=== PATIENT | male | born 1960 | race African-American/Black ===

== ENCOUNTER 2018-02-22 13:51 | Inpatient (IN) | payer MEDICAID ==
[~2018-02-22] VITALS: Ht 182.9 cm; Wt 83.9 kg
[2018-02-22] MEDS ORDERED: ONDANSETRON HCL 4MG/2ML INJ IV STA ×2 (13:59→14:52)
[2018-02-22] MEDS ORDERED: OCTREOTIDE ACETATE 50 MCG/ML 1ML IV STA (13:59)
[2018-02-22] MEDS ORDERED: PANTOPRAZOLE SODIUM 40 MG/VIAL IV STA (13:59)
[2018-02-22] MEDS ORDERED: SODIUM CHLORIDE 0.9% 1000ML BAG (SEPSIS BOLUS) IV ONE (14:00)
[2018-02-22] MEDS ORDERED: NOREPINEPHRINE 4 MG in DEXT 5% WATER 246 ML IV ONE ×2 (14:45→19:30)
[2018-02-22 14:53] LABS: BASOPHILS % 0.6 % (0.0-2.0); EOSINOPHILS % 0.4 % (0.0-5.0); LYMPHOCYTES % 30.7 % (20.0-50.0); MEAN CORPUSCULAR HEMOGLOBIN 41.6 pg (28.0-32.0); MEAN CORPUSCULAR VOLUME 119.6 fL (80.0-94.0); MEAN PLATELET VOLUME 8.9 fl (7.4-10.4); MONOCYTES % 13.9 % (2.0-8.0); NEUTROPHILS % 54.4 % (40.0-76.0); PLATELET 53 x1000/uL (130-400); RED BLOOD CELL COUNT 1.27 mill/uL (4.7-6.1); RED CELL DISTRIBUTION WIDTH 18.9 % (11.6-14.6)
[2018-02-22 14:59] LABS: CHLORIDE 112 mEq/L (98-107)
[2018-02-22 15:02] LABS: HEMATOCRIT. 15.2 % (42.0-52.0); HEMOGLOBIN. 5.3 g/dL (14.0-18.0); INR 2.4; PROTHROMBIN TIME 23.5 sec (9.1-11.1)
[2018-02-22] MEDS ORDERED: SUCCINYLCHOLINE CHLORIDE 200MG/10ML IV ONE ×2 (15:08→15:15)
[2018-02-22] MEDS ORDERED: ETOMIDATE 2MG/ML 10ML VIAL IV ONE ×2 (15:08→15:15)
[2018-02-22] MEDS ORDERED: MIDAZOLAM HCL 50 MG in DEXTROSE 5% WATER 40 ML IV ONE (15:15)
[2018-02-22] MEDS ORDERED: NOREPINEPHRINE 4MG/250ML PMX 250 ML IV ONE ×2 (15:15→16:45)
[2018-02-22] MEDS ORDERED: MIDAZOLAM HCL 50 MG in DEXTROSE 5% WATER 40 ML IV SCH (15:30)
[2018-02-22 15:38] LABS: PLATELET ESTIMATE DECREASED
[2018-02-22] MEDS ORDERED: VANCOMYCIN 1 G PREMIX 200 ML IV NR (15:45)
[2018-02-22] MEDS ORDERED: PIPERACILLIN/TAZ 3.375G PREMIX 50 ML IV NR (15:45)
[2018-02-22 16:00] LABS: BG BASE EXCESS -14.9 mmol/L (-2.0-2.0); BG CARBOXYHEMOGLOBIN 0.8 % (0.5-1.5); BG DEOXYHEMOGLOBIN 0.5 % (0.0-5.0); BG FRACTION INSPIRED OXYGEN 100; BG HCO3 ACT 11.6 mmol/L (22.0-26.0); BG METHEMOGLOBIN 0.7 % (0.0-1.5); BG OXYGEN SATURATION 99.5 % (92.0-98.5); BG PCO2 29.5 mmHg (35.0-45.0); BG PH 7.212 (7.350-7.450); BG PO2 512.8 mmHg (75.0-100.0); BG SAMPLE SITE RIGHT RADIAL; BG TIDAL VOLUME(mL) 600 mL; BG TOTAL HEMOGLOBIN 8.2 g/dL (12.0-18.0); BG VENT MODE VENT - A/C; BG VENT RATE 16 set
[2018-02-22] MEDS ORDERED: METOCLOPRAMIDE HCL 10MG/2ML VIAL IV SCH (16:00)
[2018-02-22] MEDS: PIPERACILLIN/TAZ 3.375G PREMIX 50 ML IV SCH ×2 (16:00→19:15)
[2018-02-22] MEDS ORDERED: DEXT 5%/0.45% NACL 1000ML 1,000 ML IV SCH (16:00)
[2018-02-22] MEDS ORDERED: OCTREOTIDE 50 MCG in SODIUM CHLORIDE 0.9% 50 ML SUBCUT SCH (16:15)
[2018-02-22] MEDS ORDERED: OCTREOTIDE 1,000 MCG in SODIUM CHLORIDE 0.9% 98 ML IV ONE ×4 (16:30)
[2018-02-22] MEDS ORDERED: SODIUM CHLORIDE 0.9% 1,000 ML IV ONE (16:45)
[2018-02-22] MEDS ORDERED: OCTREOTIDE 50 MCG in SODIUM CHLORIDE 0.9% 100 ML IV ONE (17:00)
[2018-02-22] MEDS ORDERED: VASOPRESSIN 10 UNIT in SODIUM CHLORIDE 0.9% 99.5 ML IV PRN ×4 (17:00)
[2018-02-22] MEDS ORDERED: IPRATROPIUM/ALBUTEROL 0.5-3(2.5)MG/3ML NEB HHN PRN (17:00)
[2018-02-22] MEDS ORDERED: PHENYLEPHRINE 20 MG in DEXT 5% WATER 248 ML IV PRN ×2 (17:00→17:15)
[2018-02-22] MEDS ORDERED: SODIUM BICARBONATE 8.4% 1 MEQ/ML 50ML SYR IV SCH (17:00)
[2018-02-22] MEDS ORDERED: ONDANSETRON HCL 4MG/2ML INJ IV PRN (17:15)
[2018-02-22] MEDS ORDERED: ACETAMINOPHEN 650MG SUPP PR PRN (17:15)
[2018-02-22] MEDS ORDERED: DOPAMINE 400MG PREMIX 250 ML IV ONE (19:45)
[2018-02-22] MEDS ORDERED: DOPAMINE 400MG PREMIX 250 ML IV SCH (20:00)
[2018-02-22] MEDS ORDERED: NOREPINEPHRINE 4MG/250ML PMX 250 ML IV PRN (20:45)
[2018-02-22] MEDS ORDERED: NOREPINEPHRINE 16 MG in DEXT 5% WATER 234 ML IV PRN ×4 (23:15)
[2018-02-23] VITALS (9 sets, daily range): BP systolic 0–49; BP diastolic 0–28
[2018-02-23] MEDS ORDERED: PHENYLEPHRINE 40 MG in DEXT 5% WATER 496 ML IV PRN (01:00)
[2018-02-23] MEDS ORDERED: DEXT 5%/0.45% NACL 1000ML 1,000 ML IV SCH (02:36)
[2018-02-23] MEDS ORDERED: MORPHINE SULFATE 250 MG in DEXT 5% WATER 240 ML IV SCH (03:30)
[2018-02-23] MEDS ORDERED: FENTANYL CITRATE/PF 500 MCG in SODIUM CHLORIDE 0.9% 40 ML IV PRN ×4 (04:00)
[2018-02-23] MEDS ORDERED: MIDAZOLAM HCL 100 MG in DEXT 5% WATER 80 ML IV PRN ×4 (04:00)
[2018-02-23] MEDS ORDERED: PIPERACILLIN/TAZ 3.375G PREMIX 50 ML IV SCH (04:00)
[2018-02-23] MEDS ORDERED: METRONIDAZOLE 500 MG PREMIX 100 ML IV SCH (04:00)
[2018-02-23] MEDS ORDERED: CEFEPIME 1,000 MG in DEXTROSE 5% WATER 50 ML IV SCH (05:00)
[2018-02-23] MEDS ORDERED: IPRATROPIUM/ALBUTEROL 0.5-3(2.5)MG/3ML NEB HHN SCH (06:00)
[2018-02-23] MEDS ORDERED: METOCLOPRAMIDE HCL 10MG/2ML VIAL IV SCH (06:00)
[2018-02-23] MEDS ORDERED: PANTOPRAZOLE SODIUM 40 MG/VIAL IV SCH (09:00)
== END 2018-02-23 03:47 | disposition expired | DRG 720 ==
LOC: ER 14:39 → EDBEDREQTM 16:09 → EDBEDREQ 16:09 → SUPCPDRO 17:08 → MICUSO 17:10 → ENRESERV 19:39
PROVIDERS: ADMIT Hospitalist; ATTEND Hospitalist
PROC: 0BH18EZ Insertion of Endotracheal Airway into Trachea, Via Natural or Artificial Opening Endoscopic (ICD-10-PCS; principal; 2018-02-22)
PROC: 5A1935Z Respiratory Ventilation, Less than 24 Consecutive Hours (ICD-10-PCS; 2018-02-22)
PROC: 06HY33Z Insertion of Infusion Device into Lower Vein, Percutaneous Approach (ICD-10-PCS; 2018-02-22)
PROC: 30243L1 Transfusion of Nonautologous Fresh Plasma into Central Vein, Percutaneous Approach (ICD-10-PCS; 2018-02-22)
PROC: 30243K1 Transfusion of Nonautologous Frozen Plasma into Central Vein, Percutaneous Approach (ICD-10-PCS; 2018-02-22)
PROC: 30243N1 Transfusion of Nonautologous Red Blood Cells into Central Vein, Percutaneous Approach (ICD-10-PCS; 2018-02-22)
PROC: 30243R1 Transfusion of Nonautologous Platelets into Central Vein, Percutaneous Approach (ICD-10-PCS; 2018-02-22)
DX: A41.9 Sepsis, unspecified organism (principal); R57.1 Hypovolemic shock; J96.00 Acute respiratory failure, unspecified whether with hypoxia or hypercapnia; G93.40 Encephalopathy, unspecified; K92.0 Hematemesis; E46 Unspecified protein-calorie malnutrition; I95.9 Hypotension, unspecified; K92.2 Gastrointestinal hemorrhage, unspecified; C22.0 Liver cell carcinoma; D68.9 Coagulation defect, unspecified; E87.2 Acidosis; D69.6 Thrombocytopenia, unspecified; D50.0 Iron deficiency anemia secondary to blood loss (chronic); B19.20 Unspecified viral hepatitis C without hepatic coma; D53.9 Nutritional anemia, unspecified; K70.30 Alcoholic cirrhosis of liver without ascites; E88.09 Other disorders of plasma-protein metabolism, not elsewhere classified; J44.9 Chronic obstructive pulmonary disease, unspecified; K72.90 Hepatic failure, unspecified without coma; I10 Essential (primary) hypertension; Z82.49 Family history of ischemic heart disease and other diseases of the circulatory system; Z68.25 Body mass index [BMI] 25.0-25.9, adult
CPT/HCPCS: 36415; 36600; 51702; 71045; 82375; 82805; 83605; 85384; 86850; 86900; 86920; 86927; 86945; 93005; 94002; 96365; 96366; 96368; 96375; 99291; J0330; J0692; J1265; J2250; J2274; J2354; J2370; J2405; J2543; J2765; J3370; J3490; J7030; J7050; J7060; P9016; P9017; P9034; A4315